=== PATIENT | female | born 1970 | race Caucasian/White ===

== ENCOUNTER → 2018-08-27 10:02 | Outpatient (CLI) | payer OTHER, SELFPAY ==
--- NOTE | 2018-08-27 10:05 | BI_ITS ---
MAMMOGRAPHY - BILATERAL SCREENING REASON FOR EXAM: Female, 48 years old. Routine annual screening examination. PERTINENT HISTORY: Non-contributory. Remote left stereotactic breast biopsy. TECHNIQUE: Digital bilateral breast taylor (3D mammographic acquisition) in the CC and MLO projections. 2-D mediolateral oblique (MLO) and craniocaudad (CC) views of both breasts were obtained. CAD: Full Field Digital Mammography with Computer Added Detection was performed. COMPARISON: Comparison is made with prior examination dated August 11, 2017. FINDINGS: Breast Composition: The breasts are extremely dense, which lowers the sensitivity of mammography. There are no dominant masses or suspicious calcifications. A tissue clip marker is seen in the medial anterior midportion of the left breast. No other significant abnormalities are identified. There has been no significant change since the prior study. BI/SCREEN MAMM (CAD) W/TAYLOR BILAT IMPRESSION: Stable bilateral screening mammogram. Yearly follow-up mammogram recommended. (A) ASSESSMENT CATEGORY: BIRADS Category 2: Benign. A letter regarding these results will be sent to the patient by the facility within 30 days. Approximately 10% of breast cancers are not detected by mammography. A normal mammogram should not delay biopsy of a clinically suspicious abnormality. [id number] Electronically Signed: Michael Velazquez MD at 12:46 EST , Service support ,
== END ==
PROVIDERS: Family Provider Internal Medicine; PCP Internal Medicine; Referring Provider Nurse Practitioner Women's Health; Visit Provider Nurse Practitioner Women's Health
DX: Z12.31 Encounter for screening mammogram for malignant neoplasm of breast (principal)
CPT/HCPCS: 77063; 77067

== ENCOUNTER → 2018-10-08 14:35 | Outpatient (CLI) | payer OTHER, SELFPAY ==
[2018-10-08 11:18] VITALS: BMI 20.9
--- NOTE | 2018-10-08 14:38 | RAD_ITS ---
STUDY: X-RAY CHEST REASON FOR EXAM: Female, 48 years old. Chest pain TECHNIQUE: PA and lateral views of the chest. COMPARISON: None. FINDINGS: The lungs are clear and expanded. There is no demonstrated pleural abnormality. Normal size heart. Normal mediastinum and ami. Normal visualized pulmonary arteries. Normal visualized aortic arch and descending thoracic aorta. Normal visualized thoracic spine. Normal visualized ribs, clavicles, and shoulders. There is no demonstrated abnormality of the visualized soft tissue structures of the upper abdomen. RAD/Chest PA and Lateral IMPRESSION: Normal x-ray examination of the chest. Electronically Signed: Natacha Cheng MD at 16:12 EST Tel , Service support ,
--- NOTE | 2018-10-08 14:40 | RAD_ITS ---
STUDY: X-RAY - ABDOMEN/PELVIS REASON FOR EXAM: Female, 48 years old. Left upper quadrant pain. TECHNIQUE: Single AP view of the abdomen / pelvis. COMPARISON: None. FINDINGS: Normal visualized lung bases. There is an abundance of fecal material throughout the colon. The visualized liver, spleen and kidneys are grossly normal in size and morphology. Evidence of bilateral tubal ligation. Normal visualized osseous structures. RAD/Abdomen Single View IMPRESSION: Large amount of fecal material is seen throughout the colon. Electronically Signed: Michael Velazquez, at 15:31 EST , Service support ,
[2018-10-16 09:10] LABS: HPV APTIMA, High Risk Negative (Negative)
== END ==
PROVIDERS: Family Provider Internal Medicine; PCP Internal Medicine; Referring Provider Internal Medicine; Visit Provider Internal Medicine
DX: R10.12 Left upper quadrant pain (principal); R07.9 Chest pain, unspecified; Z12.4 Encounter for screening for malignant neoplasm of cervix
CPT/HCPCS: 71046; 74018; 87624; 88175; G0145

== ENCOUNTER → 2019-03-12 | Outpatient (CLI) | payer OTHER, SELFPAY ==
[2018-10-08 11:18] VITALS: BMI 20.9
== END | disposition home or self-care (01) ==
LOC: PSN 08:49
PROVIDERS: Family Provider Internal Medicine; PCP Internal Medicine; Referring Provider Internal Medicine; Visit Provider Internal Medicine
DX: E00.2 Congenital iodine-deficiency syndrome, mixed type (principal)
CPT/HCPCS: 93225; 93226

== ENCOUNTER → 2019-04-06 | Outpatient (CLI) | payer OTHER, SELFPAY ==
[2018-10-08 11:18] VITALS: BMI 20.9
--- NOTE | 2019-04-06 09:43 | STEWCON_ITS ---
Reason For Study: ATYPICAL CHEST PAIN Stress Results Protocol: Stress Echocardiogram Maximum Predicted HR: 172 bpm Target HR: 146 bpm % Maximum Predicted HR: 98 % DurationHeart Rate Stage (mm:ss) (bpm) BP Comment BASELINE 85 108/78DILUTED DEFINITY 2CC USED MARIA E PROTOCOL- STAGE 1 3:00 114 102/60 MARIA E PROTOCOL- STAGE 2 3:00 139 108/64 MARIA E PROTOCOL- STAGE 3 3:00 155 112/68 MARIA E PROTOCOL- STAGE 4 1:30 169 / RECOVERY 100 110/60 Stress Duration: 10:30 mm:ss Maximum Stress HR: 169 bpm METS: 13 Baseline Echocardiogram Findings Stress Echo Wall motion Data Resting WM Intermediate WM Stress WM Resting Wall Motion Wall Motion Stress All segments Normal. All segments Hyperkinetic. Ejection Fraction 55 %. Ejection Fraction 70 %. Stress Results Heart rate response: appropriate Blood pressure response: normal resting BP - appropriate response Arrhythmias: none Functional capacity: good Stopped secondary to: leg discomfort. EKG Data ECG BASELINE: NSR. ECG STRESS: NO OBVIOUS ECG CHANGES. Symptoms with Stress No c/o chest discomfort during exercise / recovery. Interpretation Summary NEGATIVE (ADEQUATE) STRESS ECHOCARDIOGRAM Ordering Physician: Kathleen Osullivan M.D. Referring Physician: Kathleen Osullivan Performed By: Karen Glaser RDCS
== END | disposition home or self-care (01) ==
LOC: CVS 09:42
PROVIDERS: Family Provider Internal Medicine; PCP Internal Medicine; Referring Provider Internal Medicine; Visit Provider Internal Medicine
DX: R07.89 Other chest pain (principal)
CPT/HCPCS: 93017; 93350; Q9957; A4216; C8928

== ENCOUNTER → 2019-05-19 08:59 | Outpatient (CLI) | payer OTHER, SELFPAY ==
[2019-05-14 14:08] VITALS: BMI 20.9
--- NOTE | 2019-05-19 09:01 | BI_ITS ---
MAMMOGRAPHY - BILATERAL DIAGNOSTIC REASON FOR EXAM: Female, 49 years old. 1 1/2 week history of upper inner quadrant pain of the left breast. PERTINENT HISTORY: Non-contributory. Remote left stereotactic breast biopsy. TECHNIQUE: Digital bilateral breast elliott (3D mammographic acquisition) in the CC and MLO projections. 2-D mediolateral oblique (MLO) and craniocaudad (CC) views of both breasts were obtained. CAD: Full Field Digital Mammography with Computer Added Detection was performed. COMPARISON: Comparison is made with prior study dated August 27, 2018 and September 11, 2010. FINDINGS: Breast Composition: The breasts are extremely dense, which lowers the sensitivity of mammography. There are no dominant masses or suspicious calcifications. A tissue clip marker is seen in the medial anterior midportion of the left breast. No other significant abnormalities are identified. There has been no significant change since the prior study. BI/DIAG MAMM W/CAD, BILAT IMPRESSION: Stable bilateral diagnostic mammogram. With the patient's history of left breast pain, correlation with ultrasound is recommended. ASSESSMENT CATEGORY: BIRADS Category 0: Incomplete. Need additional imaging evaluation. A letter regarding these results will be sent to the patient by the facility within 30 days. Approximately 10% of breast cancers are not detected by mammography. A normal mammogram should not delay biopsy of a clinically suspicious abnormality. Electronically Signed: Michael Velazquez, at 11:06 EDT , Service support ,
--- NOTE | 2019-05-19 09:01 | US_ITS ---
STUDY: ULTRASOUND BREAST - LEFT REASON FOR EXAM: Female, 49 years old. Left breast pain. TECHNIQUE: Axial and longitudinal images of the LEFT breast were performed with a high resolution ultrasound transducer. COMPARISON: Comparison is made with prior mammogram done earlier in the day. FINDINGS: LEFT Breast: There is a 4 mm x 4 mm x 3 mm cyst at the 10:00 position of the breast at 4 cm from nipple. There is also evidence of a 5 mm x 4 mm x 3 mm well-defined hypoechoic nodule with central echogenicity in keeping with a small lymph node at the 12:00 position of the breast at 4 cm from the nipple. US/Breast Limited Unilateral IMPRESSION: Small lymph node and cyst at the 10 and 12:00 positions of the breast. ASSESSMENT CATEGORY: BIRADS Category 2: Benign. A letter regarding these results will be sent to the patient by the facility within 30 days. Electronically Signed: Michael Velazquez, at 13:29 EDT , Service support ,
== END ==
PROVIDERS: Family Provider Internal Medicine; PCP Internal Medicine; Referring Provider Nurse Practitioner Women's Health; Visit Provider Nurse Practitioner Women's Health
DX: N64.4 Mastodynia (principal)
CPT/HCPCS: 76642; 77066

== ENCOUNTER → 2019-08-23 16:32 | Outpatient (CLI) | payer OTHER, SELFPAY ==
--- NOTE | 2019-08-23 | EMB_PTH ---
PATIENT: SAPNA GARZA LOC: [facility] U#:[id number] AGE/SX: 55/F ROOM: RE08/23/[address]: VANESA Mckeon : 1970 BED: DIS: SPEC #: [id number] RECD: 08/23/19 16:32 STATUS: MARITO DARWIN #: [id number] JAMESON: 08/23/19 00:[address]: Elena Briceno NP DEPT: SURGICAL PATHOLOGY RECD BY: Ramos Carmen ENTERED: 08/24/19 08:49 SP TYPE: ENDOM BX/C DILCIA DR: Dr. Kathleen Osullivan DO Tissues: Endometrium, NOS Procedures: Surgery Specimen Level IV HEADER OPERATION: Endometrial biopsy PRE-OP DIAGNOSIS: Abnormal uterine bleeding TISSUE SUBMITTED: Endometrial lining MICROSCOPIC DIAGNOSIS Endometrial biopsy: Benign endometrial tissue, most consistent with early secretory endometrium. SJ:clarissa 08/25/19 MICROSCOPIC DESCRIPTION Slides are reviewed. GROSS DESCRIPTION Received is one container labeled with the patient's name and not further designated. The specimen consists of multiple fragments of hemorrhagic soft tissue mixed with mucoid tissue that in aggregate measure 2.5 x 1 x 0.1 cm. The specimen is totally submitted in one cassette. / SJ:clarissa 08/24/19 TC:5 CPT: 59146
[2019-08-23 11:52] VITALS: BMI 20.9
== END ==
PROVIDERS: PCP Internal Medicine; Referring Provider Nurse Practitioner Women's Health; Visit Provider Nurse Practitioner Women's Health
DX: N76.0 Acute vaginitis (principal); N93.9 Abnormal uterine and vaginal bleeding, unspecified
CPT/HCPCS: 87070; 87205; 88305

== ENCOUNTER → 2019-09-07 08:01 | Outpatient (CLI) | payer OTHER, SELFPAY ==
[2019-08-23 11:52] VITALS: BMI 20.9
--- NOTE | 2019-09-07 08:01 | US_ITS ---
STUDY: ULTRASOUND OF THE FEMALE PELVIS - COMPLETE REASON FOR EXAM: Female, 49 years old. ABN BLEEDING -- -- LMP 08/30/19 LMP: August 30, 2019. TECHNIQUE: Transabdominal and Transvaginal TECHNICAL QUALITY: Adequate. COMPARISON: None. FINDINGS: The uterus is retroverted and is in a midline position. The uterus measures 7.7 cm x 5.9 cm x 3.1 cm. There is a Nabothian cyst of the cervix. The endometrium measures 6 mm in thickness, and is heterogeneous (striated). There is no demonstrated endometrial mass. Heterogeneous appearance of the uterus. 2 small fibroids are seen. The larger measures 7 mm x 6 mm x 7 mm. I.U.D. - The patient does not have an I.U.D. The right ovary is visualized. The right ovary measures 3.2 cm x 1.9 cm x 1.8 cm. There is no right ovarian cyst or ovarian mass. There is no visualized right adnexal mass or complex lesion. There is normal arterial and normal venous vascularity. The left ovary is visualized. The left ovary measures 2.6 cm x 2.2 cm x 0.8 cm. There is no left ovarian cyst or ovarian mass. There is no visualized left adnexal mass or complex lesion. There is normal arterial and normal venous vascularity. There is minimal fluid in the cul-de-sac. Polycystic ovary disease: No. US/Transvaginal Non- IMPRESSION: Heterogeneous appearance of the uterine myometrium with 2 small subcentimeter fibroids. Electronically Signed: Michael Velazquez, at 12:18 EST , Service support ,
--- NOTE | 2019-09-07 08:01 | US_ITS ---
STUDY: ULTRASOUND OF THE FEMALE PELVIS - COMPLETE REASON FOR EXAM: Female, 49 years old. ABN BLEEDING -- -- LMP 08/30/19 LMP: August 30, 2019. TECHNIQUE: Transabdominal and Transvaginal TECHNICAL QUALITY: Adequate. COMPARISON: None. FINDINGS: The uterus is retroverted and is in a midline position. The uterus measures 7.7 cm x 5.9 cm x 3.1 cm. There is a Nabothian cyst of the cervix. The endometrium measures 6 mm in thickness, and is heterogeneous (striated). There is no demonstrated endometrial mass. Heterogeneous appearance of the uterus. 2 small fibroids are seen. The larger measures 7 mm x 6 mm x 7 mm. I.U.D. - The patient does not have an I.U.D. The right ovary is visualized. The right ovary measures 3.2 cm x 1.9 cm x 1.8 cm. There is no right ovarian cyst or ovarian mass. There is no visualized right adnexal mass or complex lesion. There is normal arterial and normal venous vascularity. The left ovary is visualized. The left ovary measures 2.6 cm x 2.2 cm x 0.8 cm. There is no left ovarian cyst or ovarian mass. There is no visualized left adnexal mass or complex lesion. There is normal arterial and normal venous vascularity. There is minimal fluid in the cul-de-sac. Polycystic ovary disease: No. US/Pelvic (Non ) IMPRESSION: Heterogeneous appearance of the uterine myometrium with 2 small subcentimeter fibroids. Electronically Signed: Michael Velazquez, at 12:18 EST , Service support ,
== END ==
PROVIDERS: PCP Internal Medicine; Referring Provider Nurse Practitioner Women's Health; Visit Provider Nurse Practitioner Women's Health
DX: N92.1 Excessive and frequent menstruation with irregular cycle (principal)
CPT/HCPCS: 76830; 76856

== ENCOUNTER 2019-10-28 11:00 | Outpatient (RCR) | payer OTHER, SELFPAY ==
[2019-08-23 11:52] VITALS: BMI 20.9
--- NOTE | 2019-09-08 08:20 | HP.PTEVAL_ITS ---
Patient's Visit Information SAPNA GARZA is a 49 year old F referred to Physical Therapy by Gerardo Ann MD with a diagnosis of Impingement syndrome of R shoulder. Date of Evaluation: 09/08/19 Physical Therapist: Prashant Mg, DPT, OCS, CSCS - Visit Plan Frequency: up to 3x/week Duration: 4-6 Weeks Plan: 1-3x/week(pt wanted to try at home initially and will decide in a week) for terminal stretching R shoulder, mobs to R shoulder grade 4, strengthening posture adn scapula. MH, ice, ES US as needed. Postural correctiona dn activitiy modification. up to 4-6 weeks of treatment depending on progress. - Subjective Findings: R shoulder has bothered her throwing for years. Last couple months has been painful and ROM is suffering. Did fall in kitchen backwards a while ago, not sure if she caught herself with her arm or if this plays into the shoulder. Pain is constant. has had pain for a couple months. Pain is to 8/10 at worst and 2/10 at rest. Worse with quick movements. Reaching up and behind her as in dressing are painful. Dressing is modified to R UE first. Basic ADLs are getting done with L arm or with pain. Sleep is not great, hard to get comfortable adn wakes up if rolls on it. Tries to sleep on L and back but they hurt. 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 Hobbies include swimming adn biking and walks. Has not attempted swimming but can walk. Jogging hurts. - Pain R shoulder Pain Intensity (Out of 10): 1 Pain Intensity Range: 1, 8 - Objective R shulder AROM 130 abd, 132 flexion 52 ext rotation L3 IR with pain at end of all. L shoulder 15 flexion abd, 75 ext rotation and thoracic IR. Scapular ROM and cervical ROM WNL today adn without pain. B elbow adn wrist AROM WNL. Posture is forward head and protracted scapula slightly. Strength is 4/5 in all shoulder and elbow and wrist movements but painful with R flexion, abd , IR moderately adn minimally with ext rotation. Tender to palpation in supra and subscap tendon areas. +HK and neer today. - labral test. - sulcus - Goals Goal 1:: 0-155 aROM R shoulder levation and full IR to L1 without pain Goal Time Frame: 4-6 Weeks Goal 2:: sleep without interruption at night due to shoulder. Goal Time Frame: 4-6 Weeks Goal 3:: Patient able to dress without noticing R shoulder. Goal Time Frame: 4-6 Weeks Goal 4:: I management of condition including ex to limit future problems. Goal Time Frame: 4-6 Weeks Goal 5:: Pt feel 80% back to normal Goal Time Frame: 4-6 Weeks - Rehabilitation Potential Physical Therapy Diagnosis: R shoulder impingement adn adhesive capsulitis Rehabilitation Potential: Fair - Anticipated Interventions Patient/Client Instruction: Educate patient on: Condition, Plan of Care For the Purpose of:: To decrease pain, To increase ROM, To improve muscle performance and motor function, To improve ability of physical actions for home/community/work/leisure Therapeutic Exercise to Include: Strength training, Flexibilty training, Neuromotor development, Passive ROM, Active ROM, Scapular Strength/Stabilization For the Purpose of:: To decrease pain, To improve muscle performance and motor function, To increase tolerance to activity/condition/position, To improve ability of physical actions for home/community/work/leisure Manual Therapy Techniques to Include: Mobilization, Passive ROM For the Purpose of:: To increase ROM TENS: Yes - R shoulder Cryotherapy (ice pack, ice massage): Yes Thermo therapy (hot pack): Yes Ultrasound (thermal/non thermal): Yes - thermal R subscap For the Purpose of:: To decrease pain, To decrease swelling/inflammation Thank you for the opportunity to evaluate your patient. For Medicare and Medicare HMO plans, please review the plan of care and approve it. It will need to be FAXED BACK to us at [phone] for Medicare purposes. For Medicare only, by signing this I certify the plan of care. Please let me know if there are questions or concerns regarding this plan of care. Physician Signature: Date:
--- NOTE | 2019-10-01 09:53 | HP.PTREVAL ---
Gerardo Ann MD, It has been my pleasure to treat SAPNA GARZA over the last 9 visits for Impingement syndrome of R shoulder. Please see the progress note below for an update on the physical therapy plan of care! Subjective: Reaching back is tight adn painful. Rotating out to side also stiff adn sore to 7/10 with pushing it. Reaching can cause it also transiently. Comfortable at rest with 1/[address] Ann and wants to manipulate October 13. Sleep is not great as it hurts. Kept up at night. Doing all activities but uses left alot and right hurts. Objective/Function: 135 flex and abduction. 62 ext rotation. IR on side 55 degrees adn L2 IR behind her with 5/10 pain. Strength 4/5 IR, ER, flex, abd without much increased pain in neutral range. OVERALL MINIMIAL IMPROVEMENT IN ROM AND PAIN, STRENGTH IS GOOD. Plan Plan: CONTINUE AFTER [id number] WEEK FOR 2-4 WEEKS NEEDED FOR prom, arom, STRENGTH ADN FUNCTION, MODALITIES NEEDED, ICE. GOALS APPROPRIATE AFTER MANIP WITH FAIR PROGNOSIS Goals Goal 1:: 0-155 aROM R shoulder levation and full IR to L1 without pain Goal Time Frame: 4-6 Weeks Goal Progress: Not Progressing Goal 2:: sleep without interruption at night due to shoulder. Goal Time Frame: 4-6 Weeks Goal Progress: Not Progressing Goal 3:: Patient able to dress without noticing R shoulder. Goal Time Frame: 4-6 Weeks Goal Progress: Not Progressing Goal 4:: I management of condition including ex to limit future problems. Goal Time Frame: 4-6 Weeks Goal Progress: Progressing Goal 5:: Pt feel 80% back to normal Goal Time Frame: 4-6 Weeks Goal Progress: slow Anticipated Interventions Patient/Client Instruction: Educate patient on: Condition, Plan of Care For the Purpose of:: To decrease pain, To increase ROM, To improve muscle performance and motor function, To improve ability of physical actions for home/community/work/leisure Therapeutic Exercise to Include: Strength training, Flexibilty training, Neuromotor development, Passive ROM, Active ROM, Scapular Strength/Stabilization For the Purpose of:: To decrease pain, To improve muscle performance and motor function, To increase tolerance to activity/condition/position, To improve ability of physical actions for home/community/work/leisure Manual Therapy Techniques to Include: Mobilization, Passive ROM For the Purpose of:: To increase ROM TENS: Yes - R shoulder Cryotherapy (ice pack, ice massage): Yes Thermo therapy (hot pack): Yes Ultrasound (thermal/non thermal): Yes - thermal R subscap For the Purpose of:: To decrease pain, To decrease swelling/inflammation Please do not hesitate to contact me at [phone] by phone or if you have questions or concerns regarding this new plan of care! Sincerely, Prashant Mg, DPT, OCS, CSCS
--- NOTE | 2019-10-28 11:50 | HP.PTREVAL ---
Gerardo Ann MD, It has been my pleasure to treat SAPNA GARZA over the last 17 visits for Impingement syndrome of R shoulder. Please see the progress note below for an update on the physical therapy plan of care! Subjective: Much better, can get arm behind back. Pain 0-1/10 each day and worse with stretching. Still stretching at hoe sleeper stretch, wall flexion and doorway stretch. Cleaning shower overhead made her hurt slightly trasniently. Sleeping is good. Nothing scheudled with doctor. Activity knott she is normal. Objective/Function: 160 AROM flexion and abd R. 65 ext rotation and L3 IR, rotations not painful but elevation is slightly at end range transiently. Plan Plan: f/u 3 weeks as needed for d/c if doing well, pt to ex via HEP in the meantime. Goals Goal 1:: 0-155 aROM R shoulder levation and full IR to L1 without pain Goal Time Frame: 4-6 Weeks Goal Progress: Goal Met Goal 2:: sleep without interruption at night due to shoulder. Goal Time Frame: 4-6 Weeks Goal Progress: Goal Met Goal 3:: Patient able to dress without noticing R shoulder. Goal Time Frame: 4-6 Weeks Goal Progress: Goal Met Goal 4:: I management of condition including ex to limit future problems. Goal Time Frame: 4-6 Weeks Goal Progress: Goal Met Goal 5:: Pt feel 80% back to normal Goal Time Frame: 4-6 Weeks Goal Progress: Goal Met Goal 6:: Pt feel 99% back to normal Goal Time Frame: 2-4 Weeks Goal Progress: NEW GOAL Anticipated Interventions Patient/Client Instruction: Educate patient on: Condition, Plan of Care For the Purpose of:: To decrease pain, To increase ROM, To improve muscle performance and motor function, To improve ability of physical actions for home/community/work/leisure Therapeutic Exercise to Include: Strength training, Flexibilty training, Neuromotor development, Passive ROM, Active ROM, Scapular Strength/Stabilization For the Purpose of:: To decrease pain, To improve muscle performance and motor function, To increase tolerance to activity/condition/position, To improve ability of physical actions for home/community/work/leisure Manual Therapy Techniques to Include: Mobilization, Passive ROM For the Purpose of:: To increase ROM TENS: Yes - R shoulder Cryotherapy (ice pack, ice massage): Yes Thermo therapy (hot pack): Yes Ultrasound (thermal/non thermal): Yes - thermal R subscap For the Purpose of:: To decrease pain, To decrease swelling/inflammation Please do not hesitate to contact me at [phone] by phone or if you have questions or concerns regarding this new plan of care! Sincerely, Prashant Mg, DPT, OCS, CSCS
--- NOTE | 2019-12-28 16:07 | HP.PT.NRP ---
SAPNA GARZA was seen in my office for initial evaluation on 09/08/19. The following Plan of Care was established for this patient: Initial Frequency: up to 3x/week Initial Duration: 4-6 Weeks Patient/Client Instruction: Educate patient on: Condition, Plan of Care For the Purpose of:: To decrease pain, To increase ROM, To improve muscle performance and motor function, To improve ability of physical actions for home/community/work/leisure Therapeutic Exercise to Include: Strength training, Flexibilty training, Neuromotor development, Passive ROM, Active ROM, Scapular Strength/Stabilization For the Purpose of:: To decrease pain, To improve muscle performance and motor function, To increase tolerance to activity/condition/position, To improve ability of physical actions for home/community/work/leisure Manual Therapy Techniques to Include: Mobilization, Passive ROM For the Purpose of:: To increase ROM TENS: Yes - R shoulder Cryotherapy (ice pack, ice massage): Yes Thermo therapy (hot pack): Yes Ultrasound (thermal/non thermal): Yes - thermal R subscap For the Purpose of:: To decrease pain, To decrease swelling/inflammation This patient was last seen in our office 10/28/19. Pertinent comments regarding their Physical therapy will appear below: Pt seen 17 visits of POC adn was 90% better. Final plan was to f/u three weeks after last session to ensure progress. at this point, it has been over two months adn I will discontinue due to nonattendance. At this point I will be discontinuing this patient from physical therapy. I would be happy to see this patient again in the future if found appropriate by the physician. Thank you! Prashant Mg, DPT, OCS, CSCS
== END 2019-10-28 19:00 | disposition home or self-care (01) ==
LOC: PT 11:00
PROVIDERS: PCP Internal Medicine; Referring Provider Orthopaedic Surgery; Visit Provider Orthopaedic Surgery
DX: M75.41 Impingement syndrome of right shoulder (principal); M75.01 Adhesive capsulitis of right shoulder
CPT/HCPCS: 97110; 97140; 97161; 97164; 97530

== ENCOUNTER → 2020-01-12 08:25 | Outpatient (CLI) | payer OTHER, SELFPAY ==
[2019-12-07 09:11] VITALS: BMI 20.9
--- NOTE | 2020-01-12 08:28 | RAD_ITS ---
STUDY: X-RAY - ESOPHAGUS (BARIUM SWALLOW) WITH FLUOROSCOPY REASON FOR EXAM: Female, 49 years old. DYSPHAGIA. And quot;STUCK FEELING IN THROAT and quot; X 3-4 WKS. 20 IMAGES TECHNIQUE: 20 view(s) of the esophagus were obtained following swallowing of barium. FLUOROSCOPY TIME (if supplied): (0:24) minutes/seconds COMPARISON: None. FINDINGS: There is no demonstrated esophageal foreign body. There is no demonstrated stricture or mucosal abnormality. Normal gastroesophageal junction, without a demonstrated hiatal hernia. The patient ingested a 12 mm tablet of barium without any difficulty. Normal visualized aortic arch and descending thoracic aorta. Normal visualized pulmonary parenchyma. Normal visualized osseous structures of the thorax. RAD/Esophagus Dual Contrast IMPRESSION: Normal plain film x-ray examination (barium swallow) of the esophagus. Electronically Signed: Michael Velazquez, at 9:25 EDT , Service support ,
== END ==
PROVIDERS: PCP Internal Medicine; Referring Provider Internal Medicine; Visit Provider Internal Medicine
DX: R13.10 Dysphagia, unspecified (principal)
CPT/HCPCS: 74221

== ENCOUNTER → 2020-03-17 | Outpatient (CLI) | payer OTHER, SELFPAY ==
[2019-12-07 09:11] VITALS: BMI 20.9
== END | disposition home or self-care (01) ==
LOC: LABSPEC 10:36
PROVIDERS: PCP Internal Medicine; Referring Provider Internal Medicine Gastroenterology; Visit Provider Internal Medicine Gastroenterology
DX: Z11.59 Encounter for screening for other viral diseases (principal)
CPT/HCPCS: 87635; 94799; U0003

== ENCOUNTER → 2020-09-01 12:52 | Outpatient (CLI) | payer OTHER, SELFPAY ==
[2020-05-30 08:24] VITALS: BMI 20.8
[2020-09-01 13:21] LABS: Absolute Lymphocyte Count 1.17 X10^3/uL (0.83-4.51); Absolute Neutrophil Count 3.1 X10^3/uL (2.0-7.7); Basophil# 0.05 X10^3/uL; Basophil% 1.1 % (0-1); Eosinophil# 0.06 X10^3/uL; Eosinophils% 1.3 % (0-5); Hematocrit 31.3 % (37-47); Hemoglobin 10.2 g/dL (12.0-15.0); Lymphocyte # 1.17 X10^3/ul (4.0); Lymphocyte % 25.1 % (19-41); Mean Corp Hgb Conc 32.6 g/dL (32-36); Mean Corpuscular Volume 88.9 fL (81-99); Mean Platelet Vol. 10.8 fl (6.2-12.0); Monocyte# 0.29 X10^3/uL; Monocyte% 6.2 % (0-10); NRBC Flagged by Analyzer 0 % (0-5); Neutrophil # 3.08 X10^3/uL (2.7-7.7); Neutrophil % 66.1 % (47-70); Platelet Count 171 K/mm3 (150-450); RBC Distribution Width CV 12.4 % (11.6-14.6); RBC Distribution Width SD 40.2 fl (35.1-43.9); Red Blood Count 3.52 M/mm3 (4.2-5.4); White Blood Count 4.7 K/mm3 (4.4-11.0)
[2020-09-01 13:49] LABS: Vitamin D,25 Hydroxy 30.5 ng/mL
== END ==
PROVIDERS: PCP Internal Medicine; Referring Provider Nurse Practitioner Women's Health; Visit Provider Nurse Practitioner Women's Health
DX: N92.0 Excessive and frequent menstruation with regular cycle (principal); Z13.21 Encounter for screening for nutritional disorder
CPT/HCPCS: 36415; 82306; 85025

== ENCOUNTER → 2020-10-05 15:36 | Outpatient (CLI) | payer OTHER, SELFPAY ==
[2020-05-30 08:24] VITALS: BMI 20.8
[2020-10-05 16:09] LABS: Absolute Lymphocyte Count 1.36 X10^3/uL (0.83-4.51); Absolute Neutrophil Count 2.4 X10^3/uL (2.0-7.7); Basophil# 0.04 X10^3/uL; Eosinophil# 0.05 X10^3/uL; Eosinophils% 1.2 % (0-5); Hematocrit 34.4 % (37-47); Hemoglobin 10.8 g/dL (12.0-15.0); Lymphocyte # 1.36 X10^3/ul (4.0); Lymphocyte % 32.8 % (19-41); Mean Corp Hgb Conc 31.4 g/dL (32-36); Mean Corpuscular Volume 92.2 fL (81-99); Mean Platelet Vol. 10.7 fl (6.2-12.0); Monocyte# 0.29 X10^3/uL; NRBC Flagged by Analyzer 0 % (0-5); Neutrophil % 57.8 % (47-70); Platelet Count 171 K/mm3 (150-450); RBC Distribution Width CV 13.1 % (11.6-14.6); RBC Distribution Width SD 44.2 fl (35.1-43.9); Red Blood Count 3.73 M/mm3 (4.2-5.4); White Blood Count 4.2 K/mm3 (4.4-11.0)
== END ==
PROVIDERS: PCP Internal Medicine; Visit Provider Nurse Practitioner Women's Health
DX: D64.9 Anemia, unspecified (principal)
CPT/HCPCS: 36415; 85025

== ENCOUNTER → 2020-11-08 12:31 | Outpatient (CLI) | payer OTHER, SELFPAY ==
[2020-05-30 08:24] VITALS: BMI 20.8
[2020-11-08 13:39] LABS: Absolute Lymphocyte Count 1.14 X10^3/uL (0.83-4.51); Absolute Neutrophil Count 2.7 X10^3/uL (2.0-7.7); Basophil# 0.05 X10^3/uL; Basophil% 1.2 % (0-1); Eosinophil# 0.03 X10^3/uL; Eosinophils% 0.7 % (0-5); Hematocrit 39.5 % (37-47); Hemoglobin 12.5 g/dL (12.0-15.0); Lymphocyte # 1.14 X10^3/ul (4.0); Lymphocyte % 27.1 % (19-41); Mean Corp Hgb Conc 31.6 g/dL (32-36); Mean Corpuscular Hgb 28.9 pg (27.0-32.0); Mean Corpuscular Volume 91.2 fL (81-99); Mean Platelet Vol. 10.9 fl (6.2-12.0); Monocyte# 0.26 X10^3/uL; Monocyte% 6.2 % (0-10); NRBC Flagged by Analyzer 0 % (0-5); Neutrophil # 2.71 X10^3/uL (2.7-7.7); Neutrophil % 64.6 % (47-70); Platelet Count 183 K/mm3 (150-450); RBC Distribution Width CV 12.4 % (11.6-14.6); RBC Distribution Width SD 41.5 fl (35.1-43.9); Red Blood Count 4.33 M/mm3 (4.2-5.4); White Blood Count 4.2 K/mm3 (4.4-11.0)
== END ==
PROVIDERS: PCP Internal Medicine; Referring Provider Nurse Practitioner Women's Health; Visit Provider Nurse Practitioner Women's Health
DX: D64.9 Anemia, unspecified (principal)
CPT/HCPCS: 36415; 85025

== ENCOUNTER → 2020-12-19 07:38 | Outpatient (CLI) | payer OTHER, SELFPAY ==
[2020-12-07 08:54] VITALS: BMI 20.9
--- NOTE | 2020-12-19 07:40 | BI_ITS ---
MAMMOGRAPHY - BILATERAL SCREENING 3-D TOMOSYNTHESIS REASON FOR EXAM: Female, 50 years old. Routine screening PERTINENT HISTORY: No significant family history. TECHNIQUE: 2-D mammograms and 3-D Tomosynthesis of the breast (s) were performed. CAD was performed. COMPARISON: 05/19/2019 FINDINGS: The breast composition is heterogeneously dense that can obscure small breast masses. Scattered benign calcifications are seen. No dense spiculated masses or suspicious microcalcifications are identified. No architectural distortion is identified. There is no skin thickening or retraction. There has been no significant change since the prior study. BI/SCRN MAMM (CAD)W/TAYLOR BILAT IMPRESSION: No mammographic signs of malignancy. Routine yearly mammograms recommended. ASSESSMENT CATEGORY: BIRADS Category 2: Benign. A letter regarding these results will be sent to the patient by the facility within 30 days. FOLLOW UP RECOMMENDATION: Yearly follow up mammogram recommended. (A) Approximately 10% of breast cancers are not detected by mammography. A normal mammogram should not delay biopsy of a clinically suspicious abnormality. Electronically Signed: Guillaume Carty MD at 9:53 EDT , Service support ,
== END ==
PROVIDERS: PCP Internal Medicine; Referring Provider Nurse Practitioner Women's Health; Visit Provider Nurse Practitioner Women's Health
DX: Z12.31 Encounter for screening mammogram for malignant neoplasm of breast (principal)
CPT/HCPCS: 77063; 77067

== ENCOUNTER → 2021-07-14 | Outpatient (CLI) | payer OTHER, SELFPAY ==
[2021-07-14 15:02] LABS: Bacteria 0 SEEN /hpf (None Seen); Mucous, Urine 0 SEEN /hpf (<or=2+); Red Blood Cells-Urine 0 SEEN /hpf (0-5)
[2021-07-14 15:11] LABS: Color, Urine Straw (Yellow); Glucose, Dipstick Normal (Normal); Ketone-Dipstick Negative (Negative); Leukocyte Esterase-Dipstick Negative /ul (Negative); Nitrite-Dipstick Negative (Negative); Occult Blood-Urine Negative /ul (Negative); Protein-Dipstick Negative (Negative); Specific Gravity, Urine 1.005 (1.002-1.030); Urine Bilirubin Dipstick Negative (Negative); Urine Clarity Clear (Clear); Urine Urobilinogen Normal (Normal)
[2021-07-14 15:23] LABS: Squamous Epithelial Cells - UA 5-10 SEEN /hpf (5-10); White Blood Cells 0-5 SEEN /hpf (0-5)
== END | disposition home or self-care (01) ==
PROVIDERS: PCP Internal Medicine; Referring Provider Nurse Practitioner Family; Visit Provider Nurse Practitioner Family
DX: N39.0 Urinary tract infection, site not specified (principal)
CPT/HCPCS: 81001; 87086; 87088

== ENCOUNTER 2021-09-19 15:17 | Outpatient (CLI) | payer OTHER, SELFPAY ==
--- NOTE | 2021-09-19 15:19 | CT_ITS ---
STUDY: CT BRAIN WITHOUT CONTRAST REASON FOR EXAM: Female, 51 years old. HEADACHE following an injury due to a fall. RADIATION DOSAGE (If Supplied By Facility): CTDIvol = ( 47.06 ) mGy, DLP = ( 837.39 ) mGycm TECHNIQUE: Transaxial CT imaging of the brain was performed without administration of intravenous contrast material. Individualized dose optimization techniques were used for this CT. COMPARISON: No relevant priors. FINDINGS: Normal soft tissue structures. Normal calvarium. Normal size ventricles and extra-axial spaces for the patient''s age. Normal white matter tracts of the cerebral hemispheres. Normal basal ganglia and thalami. Normal brainstem. Normal cerebellum. There is no intracranial hemorrhage. There are no findings of an acute ischemic infarction. Normal visualized paranasal sinuses. CT/Brain/Head without Contrast IMPRESSION: Normal unenhanced CT scan of the brain. Electronically Signed: Michael Velazquez MD at 15:36 EST ,
== END 2021-09-19 23:59 | disposition home or self-care (01) ==
LOC: CT 15:18
PROVIDERS: PCP Internal Medicine; Referring Provider Internal Medicine; Visit Provider Internal Medicine
DX: R51.9 Headache, unspecified (principal)
CPT/HCPCS: 70450

== ENCOUNTER → 2021-12-10 | Outpatient (CLI) | payer BC, SELFPAY ==
[2021-12-10 09:09] LABS: Absolute Lymphocyte Count 1.11 X10^3/uL (0.83-4.51); Absolute Neutrophil Count 2.7 X10^3/uL (2.0-7.7); Basophil# 0.06 X10^3/uL; Basophil% 1.4 % (0-1); Eosinophil# 0.11 X10^3/uL; Eosinophils% 2.6 % (0-5); Hematocrit 40.2 % (37-47); Hemoglobin 12.8 g/dL (12.0-15.0); Lymphocyte # 1.11 X10^3/ul (0.83-4.51); Lymphocyte % 25.9 % (19-41); Mean Corp Hgb Conc 31.8 g/dL (32-36); Mean Corpuscular Hgb 28.9 pg (27.0-32.0); Mean Corpuscular Volume 90.7 fL (81-99); Mean Platelet Vol. 10.4 fl (6.2-12.0); Monocyte# 0.26 X10^3/uL; Monocyte% 6.1 % (0-10); NRBC Flagged by Analyzer 0 % (0-5); Neutrophil # 2.72 X10^3/uL (2.7-7.7); Neutrophil % 63.5 % (47-70); Platelet Count 189 K/mm3 (150-450); RBC Distribution Width CV 11.8 % (11.6-14.6); RBC Distribution Width SD 39.1 fl (35.1-43.9); Red Blood Count 4.43 M/mm3 (4.2-5.4); White Blood Count 4.3 K/mm3 (4.4-11.0)
== END | disposition home or self-care (01) ==
LOC: PAVLAB 08:56
PROVIDERS: PCP Internal Medicine; Referring Provider Nurse Practitioner Women's Health; Visit Provider Nurse Practitioner Women's Health
DX: N92.0 Excessive and frequent menstruation with regular cycle (principal)
CPT/HCPCS: 36415; 85025

== ENCOUNTER → 2021-12-20 | Outpatient (CLI) | payer BC, SELFPAY ==
--- NOTE | 2021-12-20 09:15 | BI_ITS ---
MAMMOGRAPHY - BILATERAL SCREENING REASON FOR EXAM: Female, 51 years old. Routine annual screening examination. PERTINENT HISTORY: Non-contributory. TECHNIQUE: Digital bilateral breast taylor (3D mammographic acquisition) in the CC and MLO projections. 2-D mediolateral oblique (MLO) and craniocaudad (CC) views of both breasts were obtained. CAD: Full Field Digital Mammography with Computer Added Detection was performed. COMPARISON: Comparison is made with prior study dated 12/19/2020 and 05/19/2019. FINDINGS: Breast Composition: The breasts are extremely dense, which lowers the sensitivity of mammography. There are no dominant masses or suspicious calcifications. A tissue clip marker is once again seen in the medial anterior aspect of the left breast. No other significant abnormalities are identified. There has been no significant change since the prior study. BI/SCRN MAMM (CAD)W/TAYLOR BILAT IMPRESSION: Stable bilateral screening mammogram. Yearly follow-up mammogram recommended. (A) ASSESSMENT CATEGORY: BIRADS Category 2: Benign. A letter regarding these results will be sent to the patient by the facility within 30 days. Approximately 10% of breast cancers are not detected by mammography. A normal mammogram should not delay biopsy of a clinically suspicious abnormality. [id number] Electronically Signed: Michael Velazquez MD at 10:06 EDT ,
== END | disposition home or self-care (01) ==
LOC: OPBI 09:14
PROVIDERS: PCP Internal Medicine; Visit Provider Nurse Practitioner Women's Health
DX: Z12.31 Encounter for screening mammogram for malignant neoplasm of breast (principal)
CPT/HCPCS: 77063; 77067

== ENCOUNTER → 2021-12-25 | Outpatient (CLI) | payer BC, SELFPAY ==
--- NOTE | 2021-12-25 | EMB_PTH ---
PATIENT: SAPNA GARZA LOC: [facility] U#:[id number] AGE/SX: 51/F ROOM: RE12/25/[address]: VANESA Mckeon : 1970 BED: DIS: 12/25/2021 SPEC #: [id number] RECD: 12/25/21 13:57 STATUS: MARITO REJennifer #: [id number] JAMESON: 12/25/21 00:[address]: Elena Briceno NP DEPT: SURGICAL PATHOLOGY RECD BY: Ramos Carmen ENTERED: 12/25/21 13:57 SP TYPE: ENDOM BX/C DILCIA DR: Dr. Kathleen Osullivan DO Tissues: Endometrium, NOS Procedures: Surgery Specimen Level IV HEADER OPERATION: Endometrial biopsy PRE-OP DIAGNOSIS: Abnormal uterine biopsy TISSUE SUBMITTED: Endometrial biopsy MICROSCOPIC DIAGNOSIS Endometrial biopsy: Proliferative endometrium. Fragments of benign endocervical epithelium, blood and mucous. SJ:clarissa 12/26/2021 MICROSCOPIC DESCRIPTION Slides are reviewed. GROSS DESCRIPTION Received is one container labeled with the patient's name and not further designated. The specimen consists of multiple fragments of hemorrhagic soft tissue that in aggregate measure 2 x 1.5 x 0.1 cm. The specimen is totally submitted in one cassette. / SJ:rg 12/25/2021 TC:4 CPT: 63515
== END | disposition home or self-care (01) ==
LOC: LABSPEC 13:18
PROVIDERS: PCP Internal Medicine; Referring Provider Nurse Practitioner Women's Health; Visit Provider Nurse Practitioner Women's Health
DX: N93.9 Abnormal uterine and vaginal bleeding, unspecified (principal)
CPT/HCPCS: 88305

== ENCOUNTER → 2022-01-23 | Outpatient (CLI) | payer BC, SELFPAY ==
[2022-01-23 17:41] LABS: Hematocrit 35.3 % (37-47); Hemoglobin 11.5 g/dL (12.0-15.0); Mean Corp Hgb Conc 32.6 g/dL (32-36); Mean Corpuscular Hgb 29.7 pg (27.0-32.0); Mean Corpuscular Volume 91.2 fL (81-99); Mean Platelet Vol. 10.9 fl (6.2-12.0); Platelet Count 217 K/mm3 (150-450); RBC Distribution Width SD 43.4 fl (35.1-43.9); Red Blood Count 3.87 M/mm3 (4.2-5.4); White Blood Count 5.2 K/mm3 (4.4-11.0)
[2022-01-23 18:31] LABS: D-Dimer Quantitative (DVT/PE) 1.83 FEU/ug/m (0.27-0.49)
== END | disposition home or self-care (01) ==
LOC: MTLAB 15:59
PROVIDERS: PCP Internal Medicine; Referring Provider Internal Medicine; Visit Provider Internal Medicine
DX: R06.02 Shortness of breath (principal)
CPT/HCPCS: 36415; 85027; 85379

== ENCOUNTER → 2022-01-25 | Outpatient (CLI) | payer BC, SELFPAY ==
--- NOTE | 2022-01-25 13:02 | CT_ITS ---
EXAM: CT ANGIOGRAPHY CHEST WITH INTRAVENOUS CONTRAST CLINICAL INDICATION: ELEVATED D-DIMER TECHNIQUE: Helically acquired angiography images were obtained of the chest with intravenous contrast. This CT exam was performed using one or more of the following dose reduction techniques: automated exposure control, adjustment of the mA and/or kV according to patient size, and/or use of iterative reconstruction technique. This report was created using [employer]it[employer] report generation technology. MIP reconstructed images were created and reviewed. CONTRAST: 75 cc of Isovue-370 IV. RADIATION DOSE: CTDIvol = 3.45 mGy, DLP = 140.24 mGy-cm. COMPARISON: None. FINDINGS: PULMONARY ARTERIES: Unremarkable. Normal in caliber. No evidence of pulmonary embolism. AORTA: Unremarkable. Normal in caliber. No evidence of dissection. GREAT VESSELS OF AORTIC ARCH: Unremarkable. Normal in caliber. No evidence of dissection. LUNGS AND PLEURAL SPACES: Unremarkable. No mass. No consolidation or edema. No pleural effusion or thickening. No pneumothorax. HEART: Unremarkable. Heart size is normal. No pericardial effusion. No signs of right heart strain, ratio of right ventricle to left ventricle measures less than 1. MEDIASTINUM: Unremarkable. No mediastinal or hilar adenopathy. Esophagus is unremarkable. No hiatal hernia. THYROID: Unremarkable. No thyroid lesions. BONES/JOINTS: Unremarkable. No suspicious lytic or blastic abnormality. CT/CTA Chest W/WO Contrast IMPRESSION: Negative CTA chest. Electronically Signed: Brock Baker MD at 1:11 EDT ,
== END | disposition home or self-care (01) ==
PROVIDERS: PCP Internal Medicine; Referring Provider Internal Medicine; Visit Provider Internal Medicine
DX: R79.89 Other specified abnormal findings of blood chemistry (principal)
CPT/HCPCS: 71275; Q9967; A4216

== ENCOUNTER → 2022-02-07 | Outpatient (CLI) | payer BC, SELFPAY ==
[2022-02-07 17:15] LABS: Platelet Count 227 K/mm3 (150-450); RET-HE 32.9 pg (30-35)
[2022-02-07 18:19] LABS: CRP 6.71 mg/L (0.0-3.0); Ferritin 9 ng/mL (8-252); Iron 36 ug/dL (50-170); Iron Binding Capacity,Total 414 ug/dL (250-450); PERCENT IRON SATURATION 8.7 % (15.0-55.0)
[2022-02-07 19:40] LABS: Erythrocyte Sedimentation Rate 12 mm/hr (0-30)
[2022-02-11 17:33] LABS: Endomysial Antibody IgA Negative (Negative)
[2022-02-11 19:59] LABS: Immunoglobulin A 218 mg/dL (87-352); t-Transglutaminase IgA <2 U/mL (0-3)
[2022-02-13 00:06] LABS: Immunoglobulin A 221 mg/dL (87-352); Immunoglobulin E 26 IU/mL (6-495); Immunoglobulin G 1224 mg/dL (586-1602)
[2022-02-14 17:12] LABS: Immunoglobulin M 126 mg/dL (26-217)
== END | disposition home or self-care (01) ==
LOC: LAB 15:52
PROVIDERS: PCP Internal Medicine; Visit Provider Internal Medicine Gastroenterology
DX: D64.9 Anemia, unspecified (principal)
CPT/HCPCS: 36415; 82728; 82784; 82785; 83516; 83540; 83550; 85045; 85652; 86140; 86255

== ENCOUNTER → 2022-02-11 | Outpatient (CLI) | payer BC, SELFPAY ==
--- NOTE | 2022-02-11 11:05 | RAD_ITS ---
STUDY: X-RAY - ABDOMEN/PELVIS REASON FOR EXAM: Female, 52 years old. sitz day 3 TECHNIQUE: Two AP supine views of the abdomen and pelvis. COMPARISON: Prior comparison studies are not available for review at this time. FINDINGS: Normal visualized lung bases. There is an abundance of fecal material throughout the colon. There is no demonstrated free abdominal air. Patient is part of the bowel motility study, there are approximately 11 Sitzmarks in the descending colon, 11 Sitzmarks in the transverse colon, 2 Sitzmarks in the descending colon and one in the sigmoid. The visualized liver, spleen and kidneys are grossly normal in size and morphology. Evidence of previous tubal ligation. Normal visualized osseous structures. RAD/Abdomen Single View IMPRESSION: No acute findings Retained stool throughout the colon Patient is day 3 in a Sitzmarks study, distribution as described above Electronically Signed: Guillaume Carty MD at 13:31 EDT ,
== END | disposition home or self-care (01) ==
PROVIDERS: PCP Internal Medicine; Referring Provider Internal Medicine Gastroenterology; Visit Provider Internal Medicine Gastroenterology
DX: K58.9 Irritable bowel syndrome, unspecified (principal)
CPT/HCPCS: 74018

== ENCOUNTER → 2022-02-13 | Outpatient (CLI) | payer BC, SELFPAY ==
--- NOTE | 2022-02-13 11:50 | RAD_ITS ---
STUDY: X-RAY - ABDOMEN/PELVIS REASON FOR EXAM: Female, 52 years old. Sitz, day 5. TECHNIQUE: Two AP supine views of the abdomen and pelvis. COMPARISON: 02/12/2020. FINDINGS: Normal visualized lung bases. There is an unremarkable bowel gas pattern. There is no demonstrated free abdominal air. The majority of the markers are now seen in the descending and rectosigmoid colon. Only a single marker remains in the proximal transverse colon. Other markers are seen in the descending colon. 8 are seen in the sigmoid colon The visualized liver, spleen and kidneys are grossly normal in size and morphology. Normal soft tissue structures. Stable tubal ligation clips. Normal visualized osseous structures. RAD/Abdomen Single View IMPRESSION: Progression of sitz markers through the colon as above. Electronically Signed: Dilan Martini DO at 19:27 EDT ,
== END | disposition home or self-care (01) ==
PROVIDERS: PCP Internal Medicine; Referring Provider Internal Medicine; Visit Provider Internal Medicine
DX: K58.9 Irritable bowel syndrome, unspecified (principal)
CPT/HCPCS: 74018

== ENCOUNTER 2022-03-28 05:31 | Day surgery (SDC) | payer OTHER, SELFPAY ==
[2022-03-28] VITALS (7 sets, daily range): BP systolic 93–109; BP diastolic 64–74; PULSE 76–90; RESP 16–18; TEMP 36.1–36.9; O2SAT 98–100; BMI 21.4
[2022-03-28] MEDS: Lactated Ringers 1,000 ML 15 ML IV (06:06)
--- NOTE | 2022-03-28 06:36 | PCM.HP.BLA ---
History and Physical Date of Admission: 03/28/22 SAPNA GARZA, is a 52 F who presents to the office today for?Initial consult. 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 Reports BM 2-3 days a week with hard stools, incomplete evacuation sometimes requiring repeat stooling. When constipation is worse she will have some abdominal pain/discomfort. Denies hospitalization for this. She has attempted MirLAX without effect and causes stomach upset. She has had five children, four vaginal births and one , she is not certain constipation is worse following her pregnancies. ROS Const Constitutional: No chills, fatigue or fever(s) Resp Respiratory: No shortness of breath Cardio Cardiology: No chest pain at rest Gastro GI: Positive for abdominal pain (RLQ), bloating and cramping; No change in bowel habits, constipation, diarrhea or vomiting Genitourinary-Female: Positive for side pain and heavy periods; No difficulty urinating, burning urination, painful urination, urinary frequency, urinary urgency, abnormal vaginal bleeding or Vaginal Itching Endo Endocrine: No fatigue Exam Const General: cooperative, comfortable and no acute distress Nutritional Appearance: well nourished Orientation: alert and awake Limitations: mental status not altered Resp Effort & Inspection: normal respiratory effort, able to speak in complete sentences and symmetric chest movement Auscultation: Bilateral: Clear to Auscultation Cardio Rate: regular rate Rhythm: regular rhythm Heart Sounds: S1 normal and S2 normal GI Auscultation: normal bowel sounds Palpation: soft, no masses and tender in the RLQ (states pain with palpation, no guarding) General: No CVA tenderness Neuro General: patient alert and patient awake Speech: speech normal Psych Speech and Movement: speech and movement normal Attitude: cooperative Thought Process: normal Thought Content: normal Quality Reporting Tobacco Screening (CMS 138) Smoking Status: Never smoker Assessment and Plan Assessment and Plan (1) Irritable bowel syndrome: ?Qualifiers: ?Irritable bowel syndrome type:?with constipation? Qualified Code(s):?K58.1 - Irritable bowel syndrome with constipation ?Plan: Not having any signs or symptoms of bowel syndrome at this she does have chronic idiopathic constipation it could be secondary to irritable bowel syndrome.? We will get a sits marker test so we can see whether she has slow transit constipation or pelvic floor dysfunction. (2) Anemia: ?Status:?Acute ?Plan: Will get iron studies checked as we suspect that her anemia is meta menorrhagia.? However she has a normocytic anemia and we will to make sure she is iron deficient. ? ? ? Orders: Orders Ferritin Today D64.9 - Anemia, unspecified ? Iron+Iron Binding Capacity Today D64.9 - Anemia, unspecified ? Retic Panel Count Today D64.9 - Anemia, unspecified ? Celiac Disease Profile Today D64.9 - Anemia, unspecified ? Immunoglobulin A Today D64.9 - Anemia, unspecified ? CRP Today D64.9 - Anemia, unspecified ? Erythrocyte Sed Rate Today D64.9 - Anemia, unspecified ? Immunoglobulin E Today D64.9 - Anemia, unspecified ? Immunoglobulin G Today D64.9 - Anemia, unspecified ? Immunoglobulin M Today D64.9 - Anemia, unspecified ? Abdomen Single View Today K58.9 - Irritable bowel syndrome without diarrhea ? Abdomen Single View Today K58.9 - Irritable bowel syndrome without diarrhea ? I have re-examined the patient. There are no clinical changes since date of exam.
--- NOTE | 2022-03-28 07:04 | OP.CCLET_ITS ---
05/09/2022 Kathlene Osullivan [address] [place] [address] Re : Colonoscopy procedure for Ro Campos Dear Dr. Osullivan This procedure was performed on March. My impressions and recommendations are as follows: Impressions : - Tortuous colon. - Stool in the entire examined colon. - No specimens collected. Recommendations : - Discharge patient to home. - Resume previous diet. - Continue present medications. - Repeat colonoscopy at the next available appointment because the bowel preparation was poor. My findings are described in the full procedure note, which is enclosed. If I can be of further assistance, please feel free to contact me at . Sincerely, Dipesh Quiñonez, 03/28/2022 7:03:13 AM This report has been signed electronically.
--- NOTE | 2022-03-28 07:04 | OP.COLON_ITS ---
Patient Name: Ro Campos Procedure Date: 03/28/2022 6:26 AM Date of : 1970 Age: 52 Procedure: Colonoscopy Indications: Screening for colorectal malignant neoplasm Providers: Dipesh Quiñonez DO Medicines: Monitored Anesthesia Care Patient Profile: This is a 52 year old female. Refer to note in patient chart for documentation of history and physical. Last Colonoscopy: date unknown. Unable to locate last colonoscopy report. Complications: No immediate complications. Procedure: Pre-Anesthesia Assessment: - Prior to the procedure, a History and Physical was performed, and patient medications and allergies were reviewed. The patient is competent. The risks and benefits of the procedure and the sedation options and risks were discussed with the patient. All questions were answered and informed consent was obtained. Patient identification and proposed procedure were verified by the physician in the pre-procedure area. Mental Status Examination: alert and oriented. Airway Examination: normal oropharyngeal airway and neck mobility. Respiratory Examination: clear to auscultation. CV Examination: normal. Prophylactic Antibiotics: The patient does not require prophylactic antibiotics. Prior Anticoagulants: The patient has taken no previous anticoagulant or antiplatelet agents. ASA Grade Assessment: II - A patient with mild systemic disease. After reviewing the risks and benefits, the patient was deemed in satisfactory condition to undergo the procedure. The anesthesia plan was to use moderate sedation / analgesia (conscious sedation). Immediately prior to administration of medications, the patient was re-assessed for adequacy to receive sedatives. The heart rate, respiratory rate, oxygen saturations, blood pressure, adequacy of pulmonary ventilation, and response to care were monitored throughout the procedure. The physical status of the patient was re-assessed after the procedure. After I obtained informed consent, the scope was passed under direct vision. Throughout the procedure, the patient's blood pressure, pulse, and oxygen saturations were monitored continuously. The pediatric colonoscope was introduced through the anus and advanced to the hepatic flexure. The colonoscopy was performed without difficulty. The patient tolerated the procedure well. The quality of the bowel preparation was 80 percent obscured. Moderate Sedation: Moderate (conscious) sedation was personally administered by an anesthesia professional. The following parameters were monitored: oxygen saturation, heart rate, blood pressure, respiratory rate, EKG, adequacy of pulmonary ventilation, and response to care. Scope In: 6:45:11 AM Scope Out: 6:55:49 AM Total Procedure Duration Time 0 hours 10 minutes 38 seconds Findings: The perianal and digital rectal examinations were normal. The sigmoid colon was significantly tortuous. Semi-liquid semi-solid solid stool was found in the entire colon, precluding visualization. Impression: - Tortuous colon. - Stool in the entire examined colon. - No specimens collected. Recommendation: - Discharge patient to home. - Resume previous diet. - Continue present medications. - Repeat colonoscopy at the next available appointment because the bowel preparation was poor. Procedure Code(s): --- Professional --- G0121, 53, Colorectal cancer screening; colonoscopy on individual not meeting criteria for high risk CPT copyright 2017 [employer]. All rights reserved. The codes documented in this report are preliminary and upon solar sales rep review may be revised to meet current compliance requirements. Dipesh Quiñonez DO 03/28/2022 7:03:13 AM This report has been signed electronically. Number of Addenda: 1 Note Initiated On: 03/28/2022 6:26 AM Addendum Number: 1 Addendum Date: 05/09/2022 6:05:25 AM MAC was used as sedation for this procedure. Dipesh Quiñonez DO 05/09/2022 6:05:32 AM This report has been signed electronically.
== END 2022-03-28 07:52 | disposition home or self-care (01) ==
LOC: EN 05:32 → AC 05:34
PROVIDERS: PCP Internal Medicine; Referring Provider Internal Medicine; Visit Provider Internal Medicine Gastroenterology
PROC: 0DJD8ZZ Inspection of Lower Intestinal Tract, Via Natural or Artificial Opening Endoscopic (ICD-10-PCS; CPT 45378; principal; 2022-03-28 06:25)
DX: Z12.11 Encounter for screening for malignant neoplasm of colon (principal); K58.1 Irritable bowel syndrome with constipation; D64.9 Anemia, unspecified; Q43.8 Other specified congenital malformations of intestine
CPT/HCPCS: 45378; J7120; J2405

== ENCOUNTER → 2022-04-09 | Outpatient (CLI) | payer OTHER, SELFPAY | END | disposition home or self-care (01) | LOC: LABSPEC 11:34 | PROVIDERS: PCP Internal Medicine; Referring Provider Nurse Practitioner Women's Health; Visit Provider Nurse Practitioner Women's Health | DX: N89.8 Other specified noninflammatory disorders of vagina (principal) | CPT/HCPCS: 87070; 87205 ==

== ENCOUNTER 2022-05-28 05:31 | Day surgery (SDC) | payer OTHER, SELFPAY ==
[2022-05-28] VITALS (7 sets, daily range): BP systolic 97–133; BP diastolic 38–76; PULSE 79–101; RESP 16; TEMP 36.2–37.3; O2SAT 98–100; BMI 21.4
[2022-05-28] MEDS: Lactated Ringers 1,000 ML 15 ML IV (06:21)
--- NOTE | 2022-05-28 06:30 | COLBX_PTH ---
PATIENT: SAPNA GARZA LOC: [facility] U#:[id number] AGE/SX: 52/F ROOM: RE05/28/[address]: Dr. Dipesh Quiñonez DO : 1970 BED: DIS: 05/28/2022 SPEC #: [id number] RECD: 05/28/22 11:58 STATUS: MARITO REQ #: [id number] JAMESON: 05/28/22 06:[address]: Dipesh Quiñonez DEPT: SURGICAL PATHOLOGY RECD BY: Claire Roche ENTERED: 05/28/22 13:24 SP TYPE: COLON BX OTHR DR: Dr. Kathleen Osullivan DO Tissues: Cecum, NOS Procedures: Surgery Specimen Level IV HEADER OPERATION: Colonoscopy (MAC), polypectomy PRE-OP DIAGNOSIS: Irritable bowel syndrome, anemia TISSUE SUBMITTED: Cecal polyp MICROSCOPIC DIAGNOSIS Cecal polyp, biopsy: Fragments of hyperplastic polyp. AM:clarissa 05/29/2022 MICROSCOPIC DESCRIPTION Slides are reviewed. GROSS DESCRIPTION Received in fixative is one container labeled with the patient's name and designated cecal polyp. The specimen consists of multiple irregular fragments of light amaro soft tissue that in aggregate measure 1.5 x 0.5 x 0.1 cm. The specimen is totally submitted in one cassette. / AM:clarissa 05/28/2022 TC:5 CPT: 84888
--- NOTE | 2022-05-28 06:39 | HP.PCM_ITS ---
History and Physical Date of Admission: 05/28/22 SAPNA GARZA, is a 52 F who presents to the office today for?Initial consult. 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 Reports BM 2-3 days a week with hard stools, incomplete evacuation sometimes requiring repeat stooling. When constipation is worse she will have some abdominal pain/discomfort. Denies hospitalization for this. She has attempted MirLAX without effect and causes stomach upset. She has had five children, four vaginal births and one , she is not certain constipation is worse following her pregnancies. ROS Const Constitutional: No chills, fatigue or fever(s) Resp Respiratory: No shortness of breath Cardio Cardiology: No chest pain at rest Gastro GI: Positive for abdominal pain (RLQ), bloating and cramping; No change in bowel habits, constipation, diarrhea or vomiting Genitourinary-Female: Positive for side pain and heavy periods; No difficulty urinating, burning urination, painful urination, urinary frequency, urinary urgency, abnormal vaginal bleeding or Vaginal Itching Endo Endocrine: No fatigue Exam Const General: cooperative, comfortable and no acute distress Nutritional Appearance: well nourished Orientation: alert and awake Limitations: mental status not altered Resp Effort & Inspection: normal respiratory effort, able to speak in complete sentences and symmetric chest movement Auscultation: Bilateral: Clear to Auscultation Cardio Rate: regular rate Rhythm: regular rhythm Heart Sounds: S1 normal and S2 normal GI Auscultation: normal bowel sounds Palpation: soft, no masses and tender in the RLQ (states pain with palpation, no guarding) General: No CVA tenderness Neuro General: patient alert and patient awake Speech: speech normal Psych Speech and Movement: speech and movement normal Attitude: cooperative Thought Process: normal Thought Content: normal Quality Reporting Tobacco Screening (CMS 138) Smoking Status: Never smoker Assessment and Plan Assessment and Plan (1) Irritable bowel syndrome: ?Qualifiers: ?Irritable bowel syndrome type:?with constipation? Qualified Code(s):? K58.1 - Irritable bowel syndrome with constipation ?Plan: Not having any signs or symptoms of bowel syndrome at this she does have chronic idiopathic constipation it could be secondary to irritable bowel syndrome.? We will get a sits marker test so we can see whether she has slow transit constipation or pelvic floor dysfunction. (2) Anemia: ?Status:?Acute ?Plan: Will get iron studies checked as we suspect that her anemia is meta menorrhagia.? However she has a normocytic anemia and we will to make sure she is iron deficient. ? ? ? Orders: Orders Ferritin? Today? D64.9 - Anemia, unspecified ? Iron+Iron Binding Capacity? Today? D64.9 - Anemia, unspecified ? Retic Panel Count? Today? D64.9 - Anemia, unspecified ? Celiac Disease Profile? Today? D64.9 - Anemia, unspecified ? Immunoglobulin A? Today? D64.9 - Anemia, unspecified ? CRP? Today? D64.9 - Anemia, unspecified ? Erythrocyte Sed Rate? Today? D64.9 - Anemia, unspecified ? Immunoglobulin E? Today? D64.9 - Anemia, unspecified ? Immunoglobulin G? Today? D64.9 - Anemia, unspecified ? Immunoglobulin M? Today? D64.9 - Anemia, unspecified ? Abdomen Single View? Today? K58.9 - Irritable bowel syndrome without diarrhea ? Abdomen Single View? Today? K58.9 - Irritable bowel syndrome without diarrhea ? I have re-examined the patient. There are no clinical changes since date of exam
--- NOTE | 2022-05-28 07:14 | OP.COLON_ITS ---
Patient Name: Ro Campos Procedure Date: 05/28/2022 6:19 AM Date of : 1970 Age: 52 Procedure: Colonoscopy Indications: Screening for colorectal malignant neoplasm Providers: Dipesh Quiñonez DO Medicines: Monitored Anesthesia Care Patient Profile: This is a 52 year old female. Refer to note in patient chart for documentation of history and physical. Last Colonoscopy: within the past 3 months. Complications: No immediate complications. Procedure: Pre-Anesthesia Assessment: - Prior to the procedure, a History and Physical was performed, and patient medications and allergies were reviewed. The risks and benefits of the procedure and the sedation options and risks were discussed with the patient. All questions were answered and informed consent was obtained. Patient identification and proposed procedure were verified by the physician in the pre-procedure area. Mental Status Examination: alert and oriented. Airway Examination: normal oropharyngeal airway and neck mobility. Respiratory Examination: clear to auscultation. CV Examination: normal. Prophylactic Antibiotics: The patient does not require prophylactic antibiotics. Prior Anticoagulants: The patient has taken no previous anticoagulant or antiplatelet agents. ASA Grade Assessment: II - A patient with mild systemic disease. After reviewing the risks and benefits, the patient was deemed in satisfactory condition to undergo the procedure. The anesthesia plan was to use monitored anesthesia care (MAC). Immediately prior to administration of medications, the patient was re-assessed for adequacy to receive sedatives. The heart rate, respiratory rate, oxygen saturations, blood pressure, adequacy of pulmonary ventilation, and response to care were monitored throughout the procedure. The physical status of the patient was re-assessed after the procedure. After I obtained informed consent, the scope was passed under direct vision. Throughout the procedure, the patient's blood pressure, pulse, and oxygen saturations were monitored continuously. The colonoscope was introduced through the anus and advanced to the cecum, identified by appendiceal orifice and ileocecal valve. The colonoscopy was performed without difficulty. The patient tolerated the procedure well. The quality of the bowel preparation was poor. Scope In: 6:44:25 AM Scope Withdrawal Time 0 hours 13 minutes 28 seconds Scope Out: 7:05:24 AM Total Procedure Duration Time 0 hours 20 minutes 59 seconds Findings: The perianal and digital rectal examinations were normal. The sigmoid colon was significantly redundant. The sigmoid colon was significantly tortuous. A large amount of stool was found in the rectum, in the sigmoid colon, in the descending colon, at the splenic flexure, in the transverse colon, in the ascending colon and in the cecum, precluding visualization. Lavage of the area was performed using greater than 500 mL of sterile water, resulting in incomplete clearance with continued poor visualization. A 5 mm polyp was found in the cecum. The polyp was sessile. The polyp was removed with a hot snare. Resection and retrieval were complete. Verification of patient identification for the specimen was done. Estimated blood loss was minimal. Impression: - Preparation of the colon was poor. - Redundant colon. - Tortuous colon. - Stool in the rectum, in the sigmoid colon, in the descending colon, at the splenic flexure, in the transverse colon, in the ascending colon and in the cecum. - One 5 mm polyp in the cecum, removed with a hot snare. Resected and retrieved. Recommendation: - Repeat colonoscopy in 1 year for surveillance. - No aspirin, ibuprofen, naproxen, or other non-steroidal anti-inflammatory drugs for 7 days. Procedure Code(s): --- Professional --- 79295, Colonoscopy, flexible; with removal of tumor(s), polyp(s), or other lesion(s) by snare technique CPT copyright 2017 [employer]. All rights reserved. The codes documented in this report are preliminary and upon pasta maker review may be revised to meet current compliance requirements. Dipesh Quiñonez DO 05/28/2022 7:13:51 AM This report has been signed electronically. Number of Addenda: 0 Note Initiated On: 05/28/2022 6:19 AM
--- NOTE | 2022-05-28 07:15 | OP.CCLET_ITS ---
05/28/2022 Kathleen Osullivan [address] [place] [address] Re : Colonoscopy procedure for Ro Oconnorsagrario Dear Dr. Osullivan This procedure was performed on Saturday, May 28, 2022. My impressions and recommendations are as follows: Impressions : - Preparation of the colon was poor. - Redundant colon. - Tortuous colon. - Stool in the rectum, in the sigmoid colon, in the descending colon, at the splenic flexure, in the transverse colon, in the ascending colon and in the cecum. - One 5 mm polyp in the cecum, removed with a hot snare. Resected and retrieved. Recommendations : - Repeat colonoscopy in 1 year for surveillance. - No aspirin, ibuprofen, naproxen, or other non-steroidal anti-inflammatory drugs for 7 days. My findings are described in the full procedure note, which is enclosed. If I can be of further assistance, please feel free to contact me at . Sincerely, Dipesh Quiñonez, 05/28/2022 7:13:51 AM This report has been signed electronically.
== END 2022-05-28 08:06 | disposition home or self-care (01) ==
LOC: EN 05:32 → AC 05:33
PROVIDERS: PCP Internal Medicine; Referring Provider Internal Medicine; Visit Provider Internal Medicine Gastroenterology
PROC: 0DJD8ZZ Inspection of Lower Intestinal Tract, Via Natural or Artificial Opening Endoscopic (ICD-10-PCS; CPT 45378; principal; 2022-05-28 06:25)
DX: Z12.11 Encounter for screening for malignant neoplasm of colon (principal); D64.9 Anemia, unspecified; K58.9 Irritable bowel syndrome, unspecified; K63.5 Polyp of colon; Q43.8 Other specified congenital malformations of intestine
CPT/HCPCS: 45385; 88305; J7120; J2405

== ENCOUNTER → 2022-12-24 | Outpatient (CLI) | payer OTHER, SELFPAY ==
--- NOTE | 2022-12-24 12:32 | BI_ITS ---
MAMMOGRAPHY - BILATERAL SCREENING REASON FOR EXAM: Female, 52 years old. Routine annual screening examination. PERTINENT HISTORY: Non-contributory. Stereotactic breast biopsy in 2010. TECHNIQUE: Digital bilateral breast taylor (3D mammographic acquisition) in the CC and MLO projections. 2-D mediolateral oblique (MLO) and craniocaudad (CC) views of both breasts were obtained. CAD: Full Field Digital Mammography with Computer Added Detection was performed. COMPARISON: Mammogram from 12/20/2021, 12/19/2020. FINDINGS: Breast Composition: Portions of the breasts are extremely dense which lowers the sensitivity of mammography. There are no dominant masses or suspicious calcifications. Stable biopsy marker in the left breast. No other significant abnormalities are identified. There has been no significant change since the prior study. BI/SCRN MAMM (CAD)W/TAYLOR BILAT IMPRESSION: Stable bilateral screening mammogram. Yearly follow-up mammogram recommended. (A) ASSESSMENT CATEGORY: BIRADS Category 2: Benign. A letter regarding these results will be sent to the patient by the facility within 30 days. Approximately 10% of breast cancers are not detected by mammography. A normal mammogram should not delay biopsy of a clinically suspicious abnormality. Electronically Signed: Garrett Schaffer MD at 16:37 EDT ,
--- NOTE | 2022-12-24 12:32 | US_ITS ---
INDICATION: left adnexal fullness EXAMINATION: Ultrasound US Pelvis Non OB Complete With Transvaginal Imaging TECHNIQUE: Transabdominal and transvaginal pelvic ultrasound was performed. Grayscale, spectral waveform, and color flow Doppler evaluation of the adnexa. COMPARISON: None. FINDINGS: UTERUS: Retroverted. The uterus measures 7.4 x 6.0 x 3.6 cm. There is heterogeneity of the myometrium with a possible 9 mm cystic nodule adjacent to the endometrium. The endometrial stripe measures 4 mm in AP diameter which is within normal limits. Nabothian cysts. RIGHT OVARY: 1.3 x 1.4 x 2.1 cm.. Non-enlarged, normal echogenicity. There is normal arterial inflow and venous outflow present in the right ovary. LEFT OVARY: 2.0 x 1.8 x 0.9 cm.. Non-enlarged, normal echogenicity. There is normal arterial inflow and venous outflow present in the left ovary. There are bowel loops seen in the left adnexa. FREE FLUID: Mild. US/Pelvic w/ Transvaginal IMPRESSION: Questionable small cystic nodule adjacent to the endometrium. Nabothian cysts. Electronically Signed: Korey Rivera DO at 23:13 EDT Reading Location ID and State: [facility] / [place] Tel [phone], Service support ,
== END | disposition home or self-care (01) ==
LOC: OPBI 12:28
PROVIDERS: PCP Internal Medicine; Referring Provider Nurse Practitioner Women's Health; Visit Provider Nurse Practitioner Women's Health
DX: Z12.31 Encounter for screening mammogram for malignant neoplasm of breast (principal); N94.9 Unspecified condition associated with female genital organs and menstrual cycle
CPT/HCPCS: 76830; 76856; 77063; 77067

== ENCOUNTER → 2023-12-15 | Outpatient (CLI) | payer OTHER, SELFPAY ==
[2023-12-19 14:09] LABS: HPV APTIMA, High Risk Negative (Negative)
== END | disposition home or self-care (01) ==
PROVIDERS: PCP Internal Medicine; Referring Provider Nurse Practitioner Women's Health; Visit Provider Nurse Practitioner Women's Health
DX: Z12.4 Encounter for screening for malignant neoplasm of cervix (principal); N89.8 Other specified noninflammatory disorders of vagina
CPT/HCPCS: 87070; 87205; 87624; 88175; G0145

== ENCOUNTER → 2023-12-26 | Outpatient (CLI) | payer OTHER, SELFPAY ==
--- NOTE | 2023-12-26 12:14 | BI_ITS ---
MAMMOGRAPHY - BILATERAL SCREENING REASON FOR EXAM: Female, 53 years old. Routine annual screening examination. PERTINENT HISTORY: Non-contributory. History of prior left stereotactic breast biopsy. TECHNIQUE: Digital bilateral breast taylor (3D mammographic acquisition) in the CC and MLO projections. 2-D mediolateral oblique (MLO) and craniocaudad (CC) views of both breasts were obtained. CAD: Full Field Digital Mammography with Computer Added Detection was performed. COMPARISON: Comparison is made with prior study dated December 24, 2022 and December 20, 2021. FINDINGS: Breast Composition: The breasts are extremely dense, which lowers the sensitivity of mammography. There are no dominant masses or suspicious calcifications. A tissue clip marker is once again seen in the medial retroareolar region of the left breast. No other significant abnormalities are identified. There has been no significant change since the prior study. BI/SCRN MAMM (CAD)W/TAYLOR BILAT IMPRESSION: Stable bilateral screening mammogram. Yearly follow-up mammogram recommended. (A) ASSESSMENT CATEGORY: BIRADS Category 2: Benign. A letter regarding these results will be sent to the patient by the facility within 30 days. Approximately 10% of breast cancers are not detected by mammography. A normal mammogram should not delay biopsy of a clinically suspicious abnormality. [id number] Electronically Signed: Michael Velazquez MD at 8:34 EDT ,
== END | disposition home or self-care (01) ==
LOC: OPBI 12:14
PROVIDERS: PCP Internal Medicine; Referring Provider Nurse Practitioner Women's Health; Visit Provider Nurse Practitioner Women's Health
DX: Z12.31 Encounter for screening mammogram for malignant neoplasm of breast (principal)
CPT/HCPCS: 77063; 77067

== ENCOUNTER → 2024-12-28 | Outpatient (CLI) | payer OTHER, SELFPAY ==
--- NOTE | 2024-12-28 07:45 | BI_ITS ---
EXAM: SCRN MAMM (CAD)W/TAYLOR BILAT DATE: 12/28/2024 CLINICAL HISTORY: F, Age 54 y/o , BREAST CANCER SCREENING No family history. Prior left stereotactic breast biopsy. BREAST CANCER RISK ASSESSMENT: Not assessed. TECHNIQUE: Bilateral screening digital breast tomosynthesis with 2D and 3D images. Computer aided detection. COMPARISON: Prior exam(s) dated prior study dated December 26, 2023.. FINDINGS: TISSUE DENSITY: The breast tissue is heterogenously dense, which may obscure small masses. Once again, a tissue clip marker is seen in the medial retroareolar region of the left breast. Bilateral Breast Mammographic Findings: No significant masses, calcifications or other abnormalities are identified. BI/SCRN MAMM (CAD)W/TAYLOR BILAT IMPRESSION: OVERALL FINAL ASSESSMENT: BIRADS 2 BENIGN FINDING RECOMMENDATION: Routine annual follow-up in 1 Year A letter with findings and recommendations will be mailed to the patient. Reading Location: [place] [id number]
== END | disposition home or self-care (01) ==
LOC: OPBI 07:46
PROVIDERS: PCP Internal Medicine; Referring Provider Nurse Practitioner Family; Visit Provider Nurse Practitioner Family
DX: Z12.31 Encounter for screening mammogram for malignant neoplasm of breast (principal)
CPT/HCPCS: 77063; 77067

== ENCOUNTER → 2025-02-23 | Outpatient (CLI) | payer OTHER, SELFPAY ==
[2025-02-26 05:07] LABS: QNTFERON TB Mitogen Value > 10.00 IU/mL (.); QNTFERON TB Nil Value 0.03 IU/mL (.); QNTFERON TB1+ Ag Value 0.04 IU/mL (.); QNTFERON TB2+ Ag Value 0.04 IU/mL (.); QNTIFERON TB Positive Criteria Negative (Negative)
== END | disposition home or self-care (01) ==
LOC: MTLAB 09:16
PROVIDERS: PCP Internal Medicine; Referring Provider Physician Assistant; Visit Provider Physician Assistant
DX: L40.0 Psoriasis vulgaris (principal)
CPT/HCPCS: 36415; 86480